=== PATIENT | female | born 1950 | race Caucasian/White ===

== ENCOUNTER 2020-03-21 08:57 | Day surgery (SDC) | payer OTHER ==
[~2020-03-21] VITALS: Ht 157.5 cm; Wt 52.2 kg
[2020-03-21 09:46] VITALS: BP 133/65
[2020-03-21 16:43] VITALS: BP 135/67
== END 2020-03-21 14:50 | disposition home or self-care (01) ==
LOC: DS 08:57 → GI 11:00 → DS 11:00 → OR 11:00 → DS 14:50
PROVIDERS: ATTEND Internal Medicine Gastroenterology
DX: R19.7 Diarrhea, unspecified (principal); Z90.710 Acquired absence of both cervix and uterus; Z86.73 Personal history of transient ischemic attack (TIA), and cerebral infarction without residual deficits; Z80.0 Family history of malignant neoplasm of digestive organs
CPT/HCPCS: 45378; J1200; J1610; J2250; J2310; J3010; J3490